=== PATIENT | male | born 1980 | race Caucasian/White ===

== ENCOUNTER 2017-05-29 18:06 | Emergency (ER) | payer MEDICAID ==
--- NOTE | ~2017-05-29 | CT71 ---
[facility] A Service [facility] RADIOLOGY TEXT RESULTS PATIENT: AVINASH KRUSE LOCATION: SED : 84 UNIT #: [id number] AGE: [address]: Shy Willoughby MD SEX: M ORDER DR: [id number] [place] [id number] E MR#: [id number] Acc #: [id number] NAME: AVINASH KRUSE. : 1980 SEX: M STUDY DATE/TIME: 05/29/2017 19:50 UNIT: SED ROOM: STUDY DESCRIPTION: CT Head Wo Contrast Attending Physician: Shy Willoughby M.D. Ordering Physician: Shy Willoughby M.D. Primary Care Physician: No Primary Care Physician MEDICAL IMAGING REPORT This report is preliminary unless electronic signature is present. EXAM CT scan of the head without contrast. INDICATIONS Bilateral ear pain, left facial drooping and tingling since 7:30 today. COMPARISON There is no comparison. TECHNIQUE This CT exam was performed with one or more of the following radiation dose reduction techniques: automatic exposure control, adjustment of mA and/or kV according to patient size, and iterative reconstruction. FINDINGS Axial noncontrast images were obtained from the skull base to the vertex. Ventricular size and configuration are normal. There is no evidence of acute infarct or hemorrhage. There are no extra-axial fluid collections. No mass lesion or mass effect is seen. There are no skull fractures. IMPRESSION Normal noncontrast head CT. Dictated by... Parker Coles M.D. THIS IS AN ELECTRONICALLY VERIFIED REPORT Parker Coles M.D. at 05/30/2017 7:58 PM [facility] A Service [facility] RADIOLOGY TEXT RESULTS PATIENT: AVINASH KRUSE LOCATION: SED : 82 UNIT #: [id number] AGE: [address]: Shy Willoughby MD SEX: M ORDER DR: Nancy TD: 05/30/2017 17:04 JOB #: [id number] MEDICAL IMAGING REPORT Page 1 of 1
[~2017-05-29 18:06] MED LIST: ALBUTEROL17 GM INH; AMOXICILLIN PO; AMOXICILLIN500 M1 PO; AUGMENTIN875 MG DOB; BACTRIM DS TABL1 TA1 PO; CORTISPORI3.5 GM OPT OD; FLEXERIL10 M1 PO; FLEXERIL10 MG PO; GABAPENTIN600 MG PO; IBUPROFEN PO; KEFLEX500 MG PO; LORTAB 5/500 TA1 TA1 PO; LORTAB 7.5-5001 TAB PO; MEDROL PO; MEDROL4 MG/DOSE- PO; NORCO 10-325 TA1 TAB PO; OTC COLD MEDS; PREDNISONE PO; PRILOSEC20 M1 PO; PROTEXIN1 KIT PO; VICODIN 5/500 T1 TAB PO; VOLTAREN75 MG PO; ZANAFLEX PO; ZITHROMAX PO; ZITHROMAX1 G/PKT PO; ZOFRANODT PO
== END 2017-05-29 20:29 | disposition home or self-care (01) ==
LOC: SED 18:06
DX: G51.0 Bell's palsy (principal); H65.93 Unspecified nonsuppurative otitis media, bilateral; K21.9 Gastro-esophageal reflux disease without esophagitis; F17.200 Nicotine dependence, unspecified, uncomplicated; Z79.899 Other long term (current) drug therapy
CPT/HCPCS: 70450; 99284